=== PATIENT | female | born 1950 | race Two or more races ===

== ENCOUNTER 2022-02-12 16:36 | Outpatient (REF) | payer MEDICARE, SELFPAY ==
[2022-02-12 18:08] LABS: Alanine Aminotransferase 16 U/L (0-31); Albumin Level 3.9 g/dL (3.5-5.0); Alkaline Phosphatase 79 U/L (39-117); Anion Gap 14 (12-20); Aspartate Amino Transferase 14 U/L (5-31); Bilirubin Total 0.5 mg/dL (0.0-1.0); Blood Urea Nitrogen 17 mg/dL (9-16); Calcium 8.9 mg/dL (8.4-10.2); Carbon Dioxide 23 mmol/L (22-29); Chloride 107 mmol/L (96-108); Estimated Glomerular Filt Rate > 60; Glucose Random 109 mg/dL (60-115); Potassium 4.8 mmol/L (3.3-5.1); Sodium 139 mmol/L (135-145); Total Protein 6.7 g/dL (6.5-8.0)
[2022-02-13 06:38] LABS: Estimated Average Glucose 177 mg/dL; Hemoglobin A1c % 7.8 %
== END 2022-02-12 16:37 | disposition home or self-care (01) ==
LOC: HO.LAB 16:36
PROVIDERS: PCP Internal Medicine; Visit Provider Internal Medicine
DX: E11.9 Type 2 diabetes mellitus without complications (principal); I10 Essential (primary) hypertension; M76.62 Achilles tendinitis, left leg; Q66.51 Congenital pes planus, right foot
CPT/HCPCS: 36415; 80053; 83036

== ENCOUNTER 2025-06-20 10:20 | Day surgery (SDC) | payer MEDICARE, SELFPAY ==
--- OUTSIDE RECORDS SUMMARY | 2024-04-11 09:20 | XMS_ITS ---
Author Organization [facility] Address [address] [place] [id number] Care Team Providers Care Education Rep Name Role Phone Sonam Denis Primary Care Provider UnavailCasa Hill [phone] REASON FOR VISIT POSITIVE COLOGUARD Encounters Encounter Location Date Provider Diagnosis [facility] [address] [place] [phone] 04/11/2024 Casa Walker Plan Of Treatment Next Appt Details Provider Name:Casa Walker , 06/20/2025 11:30:00 AM, [address] [place] [address] , [place], [place], [phone], Progress Notes * JEAN THAO (LILLIANA) VDOB: 1950 (75 yo F)Acc No.[id number]:04/11/2024 Progress Notes Patient: Maeve GODINEZ JEAN (LILLIANA) V Provider: Nikki Walker MD :1950 A ge:73 Y S ex:Female Date:04/11/2024 Address:[address] [place], [place] [address], [id number] Pcp:Sonam Denis Subjective: * Chief Complaints: * 1 . POSITIVE COLOGUARD. * Medical History: Objective: * Vitals: Assessment: Plan: * Treatment: * * The named appointment provid er may or may not be the originator of this progress note, and it is not deemed complete until electronically signed by the appointment provider. Sign off status: Pending * Provider: Nikki Walker MD Date: 0 04/11/2024 Generated for Sabrina marquez/Lenny/Jeromeitting on: 0 06/14/2025 05:19 PM EDT
--- OUTSIDE RECORDS SUMMARY | 2025-06-14 17:20 | XMS_ITS | Patient Health Record ---
Author Organization [facility] Address [address] [place] [address] Care Team Providers Care Bilingual Hr Generalist Name Role Phone OmaremeliSonam farley Primary Care Provider Casa Velasquez Unavailable [phone] Allergies No Known Allergies Reason For Referral No Information Medications Medication SIG (Take, Route, Frequency, Duration) Notes Start Date End Date Status Januvia 100 MG 1 tablet Orally Once a day for 30 day(s) 03/28/2025 Active Eliquis 5 MG as directed Orally 03/28/2025 Active metFORMIN HCl 500 MG 1 tablet with a ana l Orally Once a day for 30 day(s) 03/28/2025 Active Losartan Potassium 50 MG 1 tablet Orally Once a day for 30 day(s) 03/28/2025 Active Atorvastatin Calcium 20 MG 1 tablet Oral ly Once a day for 30 day(s) 03/28/2025 Active Immunizations Vaccine Route Administration Date Status Comme nts Influenza Unknown 07/18/2024 Administered Social History Tobacco Use: Social History Observation Description Date Details (start date - stop date) Never Smoker NA - NA Tobacco Control (Standard) Question Answer Notes Tobacco use: Nonsmoker AUDIT-C (Standard) Question Answer Notes Did you have a drink containing alcohol in the p ast year? No Points 0 Interpretation Negative Section Notes: Nonsmoker; no alcohol Problems Problem Type SNOMED Code ICD Code Onset Dates Problem Status W/U Status Risk Notes Problem Abnormal feces (088594992) Positive colorectal cancer screening using Cologuard test (R19.5) Active confirmed Vital Signs Temperature 98.6 degrees Fahrenheit 03/28/2025 Blood pressure diastolic 01 mm Hg 03/28/2025 Height 65 in 03/28/2025 Blood pressure systolic 001 mm Hg 03/28/2025 Weight 166.2 lbs 03/28/2025 BMI 27.65 kg/m2 03/28/2025 Procedures Procedure Date Ordered Date Performed Result Body Sit e COLONOSCOPY 03/28/2025 N/A Encounters Encounter Location Date Provider Diagnosis [facility] [address] [place] [phone] 03/28/2025 Casa Walker Positive colorectal cancer screening using Cologuard test R19.5 [facility] [address] [place] [phone] 04/30/2025 Casa Walker Assessments Encounter Date Diagnosis (ICD Code) Assessment Notes Treatment Notes Treatment Clinical Notes Section Notes 03/28/2025 Positive colorectal cancer screening using Cologuard test (ICD-10 - R19.5) Overall, Priscilla appears well. Given the fact that she has never had a colonoscopy and now has a positive Cologuard test from earlier this year, I did advise her that she definitely needs a colonoscopy for further evaluation to rule out polyps or any other lesions. We did review the rationale for this in regard to colorectal cancer prevention and/or early detection. Full consent has been attained for this, including risks of bleeding and perforation. The procedure will be done with monitored anesthesia care. I will try to obtain any recent laboratories on her so I can review her blood count and iron studies. If indeed she was iron deficient then we may want to do an upper endoscopy on the same day as her colonoscopy. She has been given the below instructions regarding adjustments of her medications for the procedure. I did advise her to let me know about whether or not she will be remaining on Eliquis after April such that we can then adjust that accordingly for the procedure. If she is still on Eliquis I would speak with her [facility] physician about whether or not she would need bridging with Lovenox while off of Eliquis. Priscilla and her were very comfortable with this plan. Thank you again for allowing me to participate in Priscilla's care. I shall continue to keep you advised of her progress. Plan Of Treatment Pending Test Test Name Order Date COLONOSCOPY 03/28/2025 Next Appt Details Provider Name:Casa Walker , 06/20/2025 11:30:00 AM, [address] , [place], [place], [phone], Insurance Providers Payer Name Payer Address Payer Phone Subscriber Number Group Number Insured Name Patient Relationship to Insured Coverage Start Date Coverage End Date MEDICARE OF [place] [address] [place] [id number] [phone] [id number] JEAN THAO (PRISCILLA) Self - patient is the insured [facility] SUPPLEMENT AL PLAN [address] [place] [address] [phone] [id number] JEAN THAO (PRISCILLA) Self - patient is the insured 7 Medical (General) History Medical History History ICD Code NIDDM Hypertension Denies [place],CVA,Lung disease,renal disease DVT in RLE in 07/2024 with a PE- on Eliquis- seeing doctor at [facility] 04/2025 to decide about further need for Eliquis Hyperlipidemia Surgical History Surgery Date(Month/Year) Right knee replacement
[2025-06-18 14:38] VITALS: BMI 27.7
[2025-06-18 15:59] VITALS: BMI 28.3
[2025-06-20 11:04] VITALS: BP 156/75; PULSE 61; RESP 14; TEMP 36.1; O2SAT 98
[2025-06-20] MEDS: Lactated Ringers 1,000 ML 100 ML IVCONT (11:27)
--- NOTE | 2025-06-20 11:27 | HO.ANESPROP2 ---
Documented by User: Ashley Gimenez NP 06/19/25 15:46 HPI - Anesthesia Eval Consult details Narrative: 75 yr old female for colonoscopy H/O PE with acute cor pulmonale, DVT: s/p b/l pulmonary artery EKOS catheter directed thrombolysis on 08/22/2024: on Eliquis, instructed to bridge with lovenox prior to colonoscopy Type 2 DM: controlled, A1C 6.4% Anesthesia Pre-Procedure Meds Is the patient on any of the following meds?: SGLT2 Inhib PMFSH Past Medical History Medical History HTN (hypertension) Hypothyroidism Osteoarthritis Type 2 diabetes mellitus without complication Hx of deep venous thrombosis (~07/2024) Surgical History Surgical History Hx of right cataract extraction (~2015) Hx of left cataract extraction (~2015) History of total right knee replacement (TKR) (~2003) Social History Social History (Updated 06/18/25 @ 16:03 by Briseida Han RN) Household Members: Spouse Housing: House Are you a primary home care manager rn to a significant other at home: No Do you presently have visiting nurse or other home services: No Patient Tobacco Use Status: Never used Tobacco Use of substances other than those prescribed or required for medical reasons: No Are you DNR?: No Advance Directives: No Advance Directives Information Provided: Yes Advance Directives on File: No Meds Allergies Allergy/AdvReac Type Severity Reaction Status Date / Time No Known Allergies Allergy Verified 06/18/25 14:40 Home Medications ?Medication ?Instructions ?Recorded ?Confirmed ?Last Taken ?Type apixaban 5 mg tablet (Eliquis) 5 mg PO BID 06/18/25 06/18/25 06/18/25 08:00 History atorvastatin 20 mg tablet 20 mg PO DAILY 06/18/25 06/18/25 Unknown History cyanocobalamin (vitamin B-12) 2,000 mcg PO DAILY 06/18/25 06/18/25 Unknown History 2,000 mcg tablet,extended release (Vitamin B-12 ER) losartan 50 mg tablet 50 mg PO DAILY 06/18/25 06/18/25 Unknown History metformin 1,000 mg tablet 1,000 mg PO BID 06/18/25 06/18/25 Unknown History Exam Height,Weight and Vital Signs: Height 5 ft 5 in Weight 77.111 kg Narrative Narrative: EKG 07/2024 Normal sinus rhythm, rate 85 left axi deviation Anterior infarct age undetermined Echocardiogram 10/13/2024 showed normal left ventricular size and normal wall thickness. LVEF 55 to 70% with no regional wall motion abnormalities. No hemodynamically significant valvular dysfunction. Normal right ventricular size and function. Mild mitral valve regurgitation. Documented by User: Tracey Tijerina DO 06/20/25 11:29 HPI - Anesthesia Eval Consult details Narrative: 75 yr old female for colonoscopy H/O PE with acute cor pulmonale and DVT: s/p b/l pulmonary artery EKOS catheter directed thrombolysis on 08/22/2024: on Eliquis, instructed to bridge with lovenox prior to colonoscopy Type 2 DM: controlled, A1C 6.4% Anesthesia Pre-Procedure Meds Is the patient on any of the following meds?: SGLT2 Inhib PMFSH Past Medical History Medical History HTN (hypertension) Hypothyroidism Osteoarthritis Type 2 diabetes mellitus without complication Hx of deep venous thrombosis (~07/2024) Family History Family history of problems with anesthesia: No Surgical History Surgical History Hx of right cataract extraction (~2015) Hx of left cataract extraction (~2015) History of total right knee replacement (TKR) (~2003) History of Problems with Anesthesia: No Social History Social History (Updated 06/18/25 @ 16:03 by Briseida Han RN) Household Members: Spouse Housing: House Are you a primary home care manager rn to a significant other at home: No Do you presently have visiting nurse or other home services: No Patient Tobacco Use Status: Never used Tobacco Use of substances other than those prescribed or required for medical reasons: No Are you DNR?: No Advance Directives: No Advance Directives Information Provided: Yes Advance Directives on File: No Meds Allergies Allergy/AdvReac Type Severity Reaction Status Date / Time No Known Allergies Allergy Verified 06/18/25 14:40 Home Medications ?Medication ?Instructions ?Recorded ?Confirmed ?Last Taken ?Type apixaban 5 mg tablet (Eliquis) 5 mg PO BID 06/18/25 06/18/25 06/18/25 08:00 History atorvastatin 20 mg tablet 20 mg PO DAILY 06/18/25 06/18/25 Unknown History cyanocobalamin (vitamin B-12) 2,000 mcg PO DAILY 06/18/25 06/18/25 Unknown History 2,000 mcg tablet,extended release (Vitamin B-12 ER) losartan 50 mg tablet 50 mg PO DAILY 06/18/25 06/18/25 Unknown History metformin 1,000 mg tablet 1,000 mg PO BID 06/18/25 06/18/25 Unknown History Exam Exam Date and Time: 06/20/25 1127 Height,Weight and Vital Signs: Vital Signs Temperature 97.0 F 06/20/25 11:04 Pulse Rate 61 06/20/25 11:04 Respiratory Rate 14 06/20/25 11:04 Blood Pressure 156/75 H 06/20/25 11:04 Pulse Oximetry 98 06/20/25 11:04 Oxygen Delivery Method Room Air 06/20/25 11:04 Temperature 97.0 F 06/20/25 11:04 Pulse Rate 61 06/20/25 11:04 Respiratory Rate 14 06/20/25 11:04 Blood Pressure 156/75 H 06/20/25 11:04 Pulse Oximetry 98 06/20/25 11:04 Oxygen Delivery Method Room Air 06/20/25 11:04 Height 5 ft 5 in Weight 77.111 kg Airway Mallampati Class: II TM Dist: >3cm Neck ROM: Full Loose/Missing/Broken Teeth: No (patient denied any loose or broken teeth) Heart: S1S2 Lungs: CTAB Assessment and Plan Assessment Anesthesia Assessment: Anesthesia Plan Discussed and Chart Reviewed Final Anesthetic Review Family History of Problems with Anesthesia: No History of Problems with Anesthesia: No NPO: Yes ASA Class: II Final Preanesthetic Review: No Changes in Pt Med Stat, Meds/Allgs Chart Reviewed, Consent Obtained/Reviewed and Anes Risks/Benef Reviewed Patient Risk: Low Procedure Risk: Low Anesthetic Plan Anesthetic Plan: MAC: and Agree w/ Assess. and Plan Disposition: Standard PACU
[2025-06-20 11:35] LABS: Glucose, Whole Blood 91 mg/dL (60-115)
--- NOTE | 2025-06-20 13:29 | P.BOP_ITS ---
Brief Operative Note Date of Service: 06/20/25 Pre-op diagnosis: + Cologuard Post-op diagnosis: other (Polyp) Procedure: Colonoscopy to the cecum and TI with hot snare polypectomy and placement of 1 Resolution clip Surgeon: Casa Walker MD Anesthesia: MAC Was an Deputy Sheriff Generalist used for this Procedure?: No Estimated blood loss (mL): 0 Pathology: other (A. Transverse colon polyp) Condition: stable Disposition: PACU
[2025-06-20 13:30] VITALS: BP 91/51; PULSE 66; RESP 16; TEMP 36.6; O2SAT 97
[2025-06-20 13:45] VITALS: BP 129/72; PULSE 54; RESP 16; O2SAT 99
[2025-06-20 14:00] VITALS: BP 134/79; PULSE 62; RESP 16; TEMP 36.4; O2SAT 99
--- NOTE | 2025-06-20 14:00 | OP_ITS ---
DATE OF SERVICE: 06/20/2025 SURGEON: Casa Walker MD INDICATIONS: The patient presents for evaluation of positive Cologuard testing. Full consent has been obtained from her for this, including risks of bleeding and perforation. PREOPERATIVE DIAGNOSIS: Positive Cologuard test. POSTOPERATIVE DIAGNOSIS: PROCEDURE PERFORMED: Colonoscopy to the cecum and terminal ileum with hot snare polypectomy x1 with placement of 1 resolution clip. ESTIMATED BLOOD LOSS: COMPLICATIONS: ANESTHESIA: Medication used, monitored anesthesia care. ASSISTANTS: SPECIMENS: POSTOPERATIVE DIAGNOSES: Positive Cologuard test, colon polyp, mild diverticulosis, and internal hemorrhoids. DESCRIPTION OF PROCEDURE: The patient was placed in the left lateral decubitus position. The digital rectal exam revealed no abnormalities. The Olympus video pediatric colonoscope was entered into the rectum and advanced easily to the cecum. Once in the cecum, I did identify normal appearing cecal pouch with appendiceal orifice and a normal-appearing ileocecal valve. The terminal ileum was cannulated and appeared normal. The scope was withdrawn back in the colon. The entire cecum and ileocecal valve appeared normal. The appendiceal orifice appeared normal. The scope was slowly withdrawn assessing all mucosal surfaces carefully. Preparation was excellent. In the transverse colon was a flat but raised approximately 12 mm polyp, which was removed by hot snare polypectomy and recovered by suction. The polypectomy site appeared clean, without any sign of residual polyp nor bleeding. A single resolution clip was applied to the polypectomy site with good deployment and good hemostasis. I did not visualize any other polyps, colitis, nor angiodysplasia. There was a mild amount of sigmoid diverticulosis. In the rectum, scope was retroflexed visualizing internal hemorrhoids, but no other pathology. The rectal mucosa appeared normal. Scope was straightened and withdrawn from the patient. She tolerated the procedure well and was returned to the recovery area in stable condition. IMPRESSION: 1. Colon polyp. 2. Diverticulosis. 3. Internal hemorrhoids. PLAN: The results of the pathology will be checked. Given these findings and her age, I do not think she would need any further screening colonoscopies as she would be just about 81 years old at that time. Therefore, she will see me as needed. She was advised to stay off all aspirin and NSAIDs while on Eliquis. She was advised that she could resume her Eliquis in 48 hours. This has been discussed with her . MD DEX Lal/CHRISTELLE / [id number] DOMENIC
--- NOTE | 2025-06-20 14:31 | PC.NURSE ---
DR. SPENCER SPOKE WITH FAMILY MEMBERS REGARDING THE PROCEDURE AND FINDINGS. DISCHARGE INSTRUCTIONS GONE OVER WITH FAMILY MEMBERS WHO SPOKE LAO AND DIDN'T WANT THE 'tiffani'.
== END 2025-06-20 14:33 | disposition home or self-care (01) ==
PROVIDERS: PCP Internal Medicine; Visit Provider Internal Medicine
PROC: 0DJD8ZZ Inspection of Lower Intestinal Tract, Via Natural or Artificial Opening Endoscopic (ICD-10-PCS; CPT 45378; principal; 2025-06-20 11:20)
DX: R19.5 Other fecal abnormalities (principal); K63.5 Polyp of colon; K57.30 Diverticulosis of large intestine without perforation or abscess without bleeding; K64.8 Other hemorrhoids; E11.9 Type 2 diabetes mellitus without complications; I10 Essential (primary) hypertension; Z86.711 Personal history of pulmonary embolism; Z86.718 Personal history of other venous thrombosis and embolism; Z79.01 Long term (current) use of anticoagulants; Z79.84 Long term (current) use of oral hypoglycemic drugs; Z79.899 Other long term (current) drug therapy
CPT/HCPCS: 45385; 82947; 88305; J2704